=== PATIENT | female | born 1940 | race Caucasian/White ===

== ENCOUNTER 2022-04-23 12:29 | Outpatient (CLI) | payer MEDICARE, BC | END 2022-04-23 12:30 | disposition home or self-care (01) | LOC: CSHMRI 12:29 | PROVIDERS: ATTEND Anesthesiology Pain Medicine | DX: M48.062 Spinal stenosis, lumbar region with neurogenic claudication (principal); M51.36 Other intervertebral disc degeneration, lumbar region | CPT/HCPCS: 72148 ==

== ENCOUNTER 2022-05-25 11:41 | Outpatient (CLI) | payer MEDICARE, BC | END 2022-05-25 11:42 | disposition home or self-care (01) | LOC: CSHLAB 11:41 | PROVIDERS: ATTEND Internal Medicine Gastroenterology | DX: Z20.822 Contact with and (suspected) exposure to COVID-19 (principal); K63.5 Polyp of colon | CPT/HCPCS: 87811 ==

== ENCOUNTER 2022-05-28 07:44 | Day surgery (SDC) | payer MEDICARE, BC ==
[2022-05-23 16:04] VITALS: BMI 34.4
[2022-05-28] MEDS ORDERED: Lidocaine 1% MPF 2 ML VIAL ONE (09:00)
[2022-05-28] MEDS ORDERED: Lidocaine 2% MPF 10 ML AMP (For Epidural Use) ONE (09:05)
[2022-05-28] MEDS ORDERED: PROPOFOL 40 ML ONE (09:05)
[2022-05-28] MEDS ORDERED: PROPOFOL 20 ML ONE ×2 (10:26→10:46)
== END 2022-05-28 11:21 | disposition home or self-care (01) ==
LOC: CSHSDC 07:44
PROVIDERS: ATTEND Internal Medicine Gastroenterology
PROC: 0DBN8ZZ Excision of Sigmoid Colon, Via Natural or Artificial Opening Endoscopic (ICD-10-PCS; principal; 2022-05-28)
PROC: 0DBH8ZZ Excision of Cecum, Via Natural or Artificial Opening Endoscopic (ICD-10-PCS; 2022-05-28)
DX: Z12.11 Encounter for screening for malignant neoplasm of colon (principal); D12.0 Benign neoplasm of cecum; D12.5 Benign neoplasm of sigmoid colon; K57.30 Diverticulosis of large intestine without perforation or abscess without bleeding; K64.9 Unspecified hemorrhoids; E78.5 Hyperlipidemia, unspecified; K21.9 Gastro-esophageal reflux disease without esophagitis; M46.1 Sacroiliitis, not elsewhere classified; M54.9 Dorsalgia, unspecified; G89.29 Other chronic pain; M19.90 Unspecified osteoarthritis, unspecified site; Z87.442 Personal history of urinary calculi; Z86.010 Personal history of colon polyps; Z20.822 Contact with and (suspected) exposure to COVID-19; Z79.2 Long term (current) use of antibiotics; Z79.899 Other long term (current) drug therapy; Z88.5 Allergy status to narcotic agent; Z88.1 Allergy status to other antibiotic agents; Z88.8 Allergy status to other drugs, medicaments and biological substances; Z98.890 Other specified postprocedural states
CPT/HCPCS: 88305; J2704